=== PATIENT | male | born 1960 | race Caucasian/White ===

== ENCOUNTER 2023-02-13 01:24 | Day surgery (SDC) | payer OTHER, SELFPAY ==
[2023-02-03 16:14] VITALS: BMI 30.4
[2023-02-13 12:39] VITALS: BP 145/93; PULSE 74; RESP 20; TEMP 36.1; O2SAT 97; BMI 31.1
[2023-02-13] MEDS: LACTATED RINGERS 1,000 ML 150 ML IV CONT (12:49)
--- NOTE | 2023-02-13 13:03 | WPDANESEPPF ---
Anes - Initial Pre Proc Eval Procedure: Operation Date: 02/13/23 13:45 Proposed Procedures p Screening Colonoscopy - Lucian Alexander MD Date/Time: 02/13/23 13:03 Surgeon: Lcuian Alexander MD Pre Op Diagnosis: neoplasm screening Patient Data Age: 62 Gender: M Height: 1.73 m Weight: 93.1 kg Last Vital Signs Temp 96.9 F L 02/13/23 12:39 Pulse 74 02/13/23 12:39 Resp 20 02/13/23 12:39 BP 145/93 H 02/13/23 12:39 Pulse Ox 97 02/13/23 12:39 O2 Del Method Room Air 02/13/23 12:39 Allergies Allergy/AdvReac Type Severity Reaction Status Date / Time loracarbef [From Lorabid] Allergy Intermediate Hives Verified 02/13/23 12:38 Home Medications Medication Instructions Recorded Confirmed Type Men 50 Plus Multivitamin 1 cap PO DAILY 02/03/23 02/13/23 History losartan 50 mg tablet 50 mg PO DAILY 02/03/23 02/13/23 History omeprazole 40 mg capsule,delayed 40 mg PO DAILY 02/03/23 02/13/23 History release tadalafil 10 mg tablet 10 mg PO PRN PRN Erectile 02/03/23 02/13/23 History Dysfunction Patient hx anesthesia problems: none Family hx anesthesia problems: none Results Review: All pre-operative results and documents have been reviewed as part of the pre-operative evaluation. [facility] Social History Social History Smoking status: Never smoker Alcohol intake: current Drinks per week: 4 Substance use: never Substance use type: does not use Living arrangements: with family Spiritual care concerns: No Anes - Eval Final PreProcedure Day of Procedure 02/13/23 13:03 Patient weight: obese Heart: regular rate and rhythm Lungs: clear to auscultation Neurological: alert and oriented Last oral intake: >/= 8 hours ASA classification: III Emergent: no Anesthetic plan: proceed Anesthesia type and monitoring: general GIVS and standard monitoring Results Review: All pre-operative results and documents have been reviewed as part of the pre-operative evaluation. Informed Consent: The patient's anesthetic plan and its attendant risks and benefits were discussed with the patient/family/POA. Questions were solicited and answers provided to the satisfaction of the patient/family/POA.
--- NOTE | 2023-02-13 13:22 | PM.HPGS ---
History of Present Illness History of Present Illness Consent: Risks, benefits, and alternatives have been discussed and questions answered. Patient agrees to proceed with procedure. Chief complaint: neoplasm screening Narrative: Geovani Terry is a 62 year old male here for first screening colonoscopy Review of Systems Constitutional: Constitutional: Denies headache(s) and Denies weakness Eyes: Eyes: Denies blurry vision ENT: Reports Normal hearing present, Denies headache(s) and Denies neck pain Cardiovascular: Cardiovascular: Denies chest pain and Denies dyspnea Respiratory: Respiratory: Denies dyspnea Gastrointestinal: Gastrointestinal: Reports no additional gastrointestinal complaints Genitourinary: Genitourinary: Denies dysuria Musculoskeletal: Musculoskeletal: Denies neck pain Integumentary/Breasts: Skin/Breast: Denies dry skin Neurologic: Reports Normal hearing present, Denies headache(s) and Denies weakness Psychiatric: Psychiatric: Denies anxiety Endocrine: Endocrine: Denies change in body appearance Hematologic/Lymphatic: Hematologic/Lymphatic: Denies easy bleeding Allergic/Immunologic: Allergic/Immunologic: Denies urticaria PMF Past Medical History Medical History (Updated 02/13/23 @ 13:22 by Lucian Alexander MD) Colon cancer screening Social History Social History Smoking status: Never smoker Alcohol intake: current Drinks per week: 4 Substance use: never Substance use type: does not use Living arrangements: with family Spiritual care concerns: No Meds Home Medications and Allergies Home Medications Medication Instructions Recorded Confirmed Type Men 50 Plus Multivitamin 1 cap PO DAILY 02/03/23 02/13/23 History losartan 50 mg tablet 50 mg PO DAILY 02/03/23 02/13/23 History omeprazole 40 mg capsule,delayed 40 mg PO DAILY 02/03/23 02/13/23 History release tadalafil 10 mg tablet 10 mg PO PRN PRN Erectile 02/03/23 02/13/23 History Dysfunction Allergies Allergy/AdvReac Type Severity Reaction Status Date / Time loracarbef [From Lorabid] Allergy Intermediate Hives Verified 02/13/23 12:38 Vital Signs Vital Signs - 24 hr 02/13/23 12:39 Temperature 96.9 F L Pulse Rate 74 Respiratory Rate 20 Blood Pressure 145/93 H Pulse Oximetry 97 Oxygen Delivery Room Air Exam Const: General: comfortable and no acute distress HENMT: Face/Nose/Sinus: Normal nares present Eyes: General: appearance normal, both eyes and all related structures Neck: Neck: no JVD Resp: Auscultation: clear to auscultation bilaterally Cardio: Rate: regular rate Rhythm: regular rhythm GI: Inspection: non-distended GI Palp: Yes Soft to palpation Skin: General skin exam: normal color Neuro: General: gait normal Speech: normal speech Extrem: General: normal to inspection Psych: Mental Status: mental status grossly normal Assessment and Plan Assessment and plan (1) Colon cancer screening: Code(s): Z12.11 - Encounter for screening for malignant neoplasm of colon Status: Acute Assessment and Plan: colonoscopy
[2023-02-13 13:36] VITALS: BP 98/68; PULSE 73; RESP 23; O2SAT 93
[2023-02-13 13:46] VITALS: BP 109/75; PULSE 66; RESP 15; O2SAT 95
[2023-02-13 13:56] VITALS: BP 132/81; PULSE 69; RESP 21; O2SAT 97
== END 2023-02-13 14:40 | disposition home or self-care (01) ==
PROVIDERS: Visit Provider Internal Medicine Gastroenterology
PROC: 0DJD8ZZ Inspection of Lower Intestinal Tract, Via Natural or Artificial Opening Endoscopic (ICD-10-PCS; CPT 45378; principal; 2023-02-13 13:45)
DX: Z12.11 Encounter for screening for malignant neoplasm of colon (principal); E66.9 Obesity, unspecified; Z68.31 Body mass index [BMI] 31.0-31.9, adult
CPT/HCPCS: 45378; J2704; J7120